=== PATIENT | male | born 1975 | race Caucasian/White ===

== ENCOUNTER → 2020-12-31 13:59 | Outpatient (CLI) | payer OTHER, SELFPAY ==
--- NOTE | ~2020-12-31 | XR_ITS ---
XR wrist LT min 3V DATE: 12/31/2020 14:13 INDICATION: Left wrist pain TECHNIQUE: 4 views COMPARISON: None FINDINGS: There is a recent linear nondisplaced intra-articular fracture of the radial styloid proces s. No other fracture or any dislocation is evident. No periosteal reaction or bone destruction. No erosi ve change or chondrocalcinosis. There is mild osteoarthritic change at the first carpometacarpal join t. IMPRESSION: Recent nondisplaced linear intra-articular fracture of the radial styloid process I made multiple attempts to telephoned the report to the doctor's office but continued to get a busy signal. I asked radiology office staff person Jaymie to fax the report to the doctor's office on the way 2020 at 1512 hours.. Reviewed, dictated and finalized at location A. [facility] [employer] [facility] IMPRESSION: Recent nondisplaced linear intra-articular fracture of the radial s tyloid process I made multiple attempts to telephoned the report to the doctor's office but co ntinued to get a busy signal. I asked radiology office staff person Jaymie to fax the report to the doctor's office on the way 2020 at 1512 hours..
== END ==
PROVIDERS: Visit Provider Physician Assistant
DX: S52.515A Nondisplaced fracture of left radial styloid process, initial encounter for closed fracture (principal); X58.XXXA Exposure to other specified factors, initial encounter
CPT/HCPCS: 73110